=== PATIENT | female | born 1950 | race African-American/Black ===

== ENCOUNTER 2019-09-01 15:42 | Observation (INO) | payer MEDICARE ==
[2019-09-01 16:31] LABS: #Lymphocytes 0.6 thou/uL (1.20-3.40); #Monocytes 0.3 thou/uL (0.11-0.59); #Neutrophils 2.6 thou/uL (1.40-6.50); %Eosinophils 0.6 % (0.0-10.0); %Lymphocytes 16.7 % (21.0-51.0); %Monocytes 9.3 % (0.0-10.0); %Neutrophils 73.4 % (42.0-75.0); Hemoglobin 9.3 g/dL (12.0-16.0); Mean Corpuscular HGB CONC 31.8 g/dL (32.0-36.0); Mean Corpuscular Hemoglobin 27.6 pg (27.0-31.0); Mean Corpuscular Volume 86.6 fL (78.0-98.0); Mean Platelet Volume 8.1 fL (7.4-10.4); Platelet Count 167 thou/uL (130-400); RBC Distribution Width 14.5 % (11.5-14.5); Red Blood Cell (RBC) Count 3.36 mill/uL (4.20-5.40); White Blood Cell (WBC) Count 3.5 thou/uL (4.8-10.8)
--- NOTE | 2019-09-01 16:41 | RAD ---
Exam: Chest one view HISTORY:Chest pain. Shortness of breath. Comparison: 03/09/2007 FINDINGS: Cardiac silhouette: Cardiomegaly. Prosthetic aortic valve. Sternotomy wires. Aorta: Atherosclerosis of the aorta. Pulmonary vessels: Mildly prominent pulmonary vasculature. Costophrenic angles: Clear LUNGS: Patchy interstitial opacities which may represent edema or infiltrate. Pneumothorax: None Osseous abnormalities: None IMPRESSION: Congestive heart failure. Superimposed infiltrate cannot be excluded.
[2019-09-01 17:01] LABS: ALT (SGPT) 14 U/L (8-55); AST (SGOT) 27 U/L (5-34); Alkaline Phosphatase 121 U/L (40-110); Anion Gap 20 mmol/L (10-20); BUN (Urea Nitrogen) 44 mg/dL (9.8-20.1); Bilirubin, Total 0.4 mg/dL (0.2-1.2); Calc. Creatinine Clearance 0 mL/min (70-130); Calcium 6.6 mg/dL (7.8-10.44); Carbon Dioxide 21 mmol/L (23-31); Chloride 106 mmol/L (98-107); Estimated GFR-MDRD 20; Globulin 3.1 g/dL (2.4-3.5); Glucose 125 mg/dL (83-110); Potassium 4.5 mmol/L (3.5-5.1); Protein, Total 7.1 g/dL (6.0-8.3); Sodium 142 mmol/L (136-145)
--- NOTE | 2019-09-01 18:15 | PDOC.FPRHP ---
- History of Present Illness Chief Complaint: Chest Pain History of Present Illness: Patient is a 69 y/o female with a PMH significant for Aortic Valve Replacement, Mitral Regurgitation, HTN and bilateral Kidney Transplant who presents to the ED for evaluation of CP. The patient states that she has had left-sided CP for 4-5 days, and notes that the pain has been dull and constant, with occasional feelings of sharpness for 30-40S that resolve spontaneously. She pain does not radiate, and was initially an 8/10, although now it is a 3/10 without modifying position or medications. She notes that the pain is worse with exertion, and is associated with SOB. The pain was relieved temporarily when she took a Tylenol 4 at home, but she has not taken any additional medication today. She has never had this type of pain in the past. She also reports feelings of nausea x1 several days ago that resolved spontaneously, as well as subjective shakiness, SCHILLING, fatigue. She has LE edema at baseline, and does not feel that this has worsened over the past several days. She denies feeling cold/clammy, diaphoretic, pre-syncopal, noticeable palpitations, worsening PND, pain worse with inspiration, any recent illness, ANDERSEN , rhinorrhea, epistaxis, cough, congestion, ABD pain, episodes of repeat nausea , dysuria, bloody stools, myalgias, arthralgias, or recent trauma. Patient states that she gets fluid overloaded on occasional, but is unsure if this is similar to her previous episodes. She received her Flu Shot this year. ED Course: s/p ASA 325 Trops: Negative x1 EKG: NSR w/o ST Elevations - No Old EKGs for Comparison - Allergies/Adverse Reactions Allergies Allergy/AdvReac Type Severity Reaction Status Date / Time adhesive Allergy Verified 09/01/19 20:07 cephalexin Allergy Anaphylaxis Verified 09/01/19 20:07 shellfish derived Allergy Anaphylaxis Verified 09/01/19 20:07 - History PMHx: ELISABETH (Wears CPAP at Home), HTN, CHF, Mitral Regurgitation, Asthma PSHx: Aortic Valve Replacement (2016), Kidney Transplant x2 (2009), Wrist Surgery, Back Surgery FHx: HTN (Mother, Father), DM2 (Sister) Social: Denies x3. 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 Meds: ASA, Lasix, Metoprolol, Simvastatin, Prograft, Micophenolate, Allergies: Keflex (Angioedema), Tegederm (Rash) Code: Full - Review of Systems General: reports: fatigue. denies: fever/chills, weight/appetite/sleep changes Eyes: denies: vision changes ENT: denies: nasal congestion, rhinorrhea Respiratory: reports: shortness of breath, exercise intolerance. denies: cough , congestion Cardiovascular: reports: chest pain, edema. denies: palpitation, paroxysmal nocturnal dyspnea Gastrointestinal: reports: nausea. denies: vomiting, diarrhea, constipation, abdominal pain Genitourinary: denies: dysuria, discharge Musculoskeletal: reports: swelling. denies: arthritis/arthralgias Neurological: denies: syncope, weakness - Vital signs BP: [151/79] HR: [95] RR: [19] Tmax: [98.6] Pox: [100]% on [Room] Wt: [] - Physical Exam Constitutional: NAD, other (Mildly SOB with movement - O2Sats 100% on monitor) HEENT: normocephalic and atraumatic, PERRLA, conjunctiva clear, no scleral icterus, grossly normal vision, grossly normal hearing, normal nasal mucosa, MMM , oropharynx clear Neck: supple, FROM, trachea midline, no LAD, no JVD, no bruits Chest: no-tender to palpation, no lesions Heart: RRR, normal S1/S2, pulses present, no edema (No pitting edema, but ankles appear mildly swollen bilaterally) -Heart: 3/6 Systolic Murmur heard throughout the Precordium Lungs: CTAB, no respiratory distress, good air movement, no rales/rhonchi, no wheezing, no retractions Abdomen: soft, non-tender, bowel sounds present, no masses/distention, no hernias Musculoskeletal: normal structure, ROM grossly normal Neurological: no focal deficit Skin: no rash/lesions, no jaundice Heme/Lymphatic: no unusual bruising or bleeding, no purpura, no petechia, no LAD Psychiatric: normal mood and affect, intact recent and remote memory FMR H&P: Results - Labs Result Diagrams: 09/01/19 16:24 09/01/19 19:52 Lab results: WBC 3.5 thou/uL (4.8-10.8) L 09/01/19 16:24 Hgb 9.3 g/dL (12.0-16.0) L 09/01/19 16:24 Hct 29.1 % (36.0-47.0) L 09/01/19 16:24 MCV 86.6 fL (78.0-98.0) 09/01/19 16:24 Plt Count 167 thou/uL (130-400) 09/01/19 16:24 Neutrophils % 73.4 % (42.0-75.0) 09/01/19 16:24 Sodium 142 mmol/L (136-145) 09/01/19 16:24 Potassium 4.5 mmol/L (3.5-5.1) 09/01/19 16:24 Chloride 106 mmol/L (98-107) 09/01/19 16:24 Carbon Dioxide 21 mmol/L (23-31) L 09/01/19 16:24 BUN 44 mg/dL (9.8-20.1) H 09/01/19 16:24 Creatinine 2.87 mg/dL (0.6-1.1) H 09/01/19 16:24 Glucose 125 mg/dL (83-110) H 09/01/19 16:24 Calcium 6.6 mg/dL (7.8-10.44) L 09/01/19 16:24 Total Bilirubin 0.4 mg/dL (0.2-1.2) 09/01/19 16:24 AST 27 U/L (5-34) 09/01/19 16:24 ALT 14 U/L (8-55) 09/01/19 16:24 Alkaline Phosphatase 121 U/L (40-110) H 09/01/19 16:24 B-Natriuretic Peptide 487.1 pg/mL (0-100) H 09/01/19 16:24 Serum Total Protein 7.1 g/dL (6.0-8.3) 09/01/19 16:24 Albumin 4.0 g/dL (3.4-4.8) 09/01/19 16:24 - EKG Interpretation EKG: No ST Elevations - Radiology Interpretation Chest x-ray Status: report reviewed by me (Cardiomegaly w/ Mild Vascular Congestion) FMR H&P: A/P - Problem List (1) CHF exacerbation Current Visit: Yes Status: Acute Code(s): I50.9 - HEART FAILURE, UNSPECIFIED (2) Kidney transplant recipient Current Visit: Yes Status: Acute Code(s): Z94.0 - KIDNEY TRANSPLANT STATUS (3) Asthma Current Visit: Yes Status: Acute Code(s): J45.909 - UNSPECIFIED ASTHMA, UNCOMPLICATED (4) HTN (hypertension) Current Visit: Yes Status: Acute Code(s): I10 - ESSENTIAL (PRIMARY) HYPERTENSION (5) Aortic valve replaced Current Visit: Yes Status: Acute Code(s): Z95.2 - PRESENCE OF PROSTHETIC HEART VALVE (6) Hypocalcemia Current Visit: Yes Status: Acute Code(s): E83.51 - HYPOCALCEMIA (7) Atypical chest pain Current Visit: Yes Status: Acute Code(s): R07.89 - OTHER CHEST PAIN - Plan Patient is a 69 y/o female who presents to the ED for evaluation of Chest Pain. 1. Atypical Chest Pain -Left-sided, worse with exertion - not relieved with rest -Possibly MSK or related to #2 -EKG: No evidence of ST Elevation - no previous EKG for comparison -Trops: Negative x1 - will continue to trend -s/p ASA 325 in the ED -NM Stress Test: Pending 2. CHF Exacerbation -Patient has extensive Hx of renal dysfunction and has had episodes of fluid overload in the past -Patient thinks she has gained ~2 LBS recently - daily weigh-ins at home -BNP: 487 -Will administer additional Furosemide 20 mg IV at this time - continue home dose in AM -TTE: Pending -Strict I&Os, Daily Weights -Will add Fluid Restriction to Diet -Will repeat 2-View CXR in AM 3. Hx of Kidney Transplant, Bilateral -Nephrology consulted - recs appreciated 4. Hypocalcemia -Ca: 6.6 -M.0 -Phos: Pending -Will administer Ca 4.6 mEq IV at this time -Trend w/ AM Labs 5. HTN -Will restart home medication regimen 6. Asthma -DuoNebs Q6H PRN PCP: Lilli ([facility]) Code: Full Diet: Heart Healthy w/ Low Sodium (Fluid Restriction < 1800 ml) - NPO After 2358 Activity: Ad sheila VTE PPx: Heparin 5000U TID w/ SCDs Dispo: Patient is currently stable and admitted to the Telemetry Floor for evaluation of suspected CHF Exacerbation. Trend Troponin levels and await AM Labs and imaging results as per above - consider Cardiology consult if TTE or NM Stress Test is non-reassuring. Nephrology consulted, recs appreciated. Expected LOS < 48H. FMR H&P: Upper Level - Plan Date/Time: 09/01/19 2034 PCP: [facility] HPI: This is a 69 yo F with PMH including CHF, bilateral renal transplant, Aortic Valve Replacement, Asthma, and HTN who comes in with 5 days of chest pain. Described as sharp left sided pain which comes and goes and radiates to the center. Yesterday the pain radiated to the arm but it has not done this today. She states she has been getting short of breath with exertion and this is bothering her more than the chest pain. She denies cough, orthopnea, wt change ( weights herself every day, is within 2lbs of normal everyday), or leg swelling. She states she has not been on dialysis since 2009. Dr. Ayala is her Staff Development Coordinator Rn and Dr. Johnson is her Licensed Acupuncturist. She does not remember the last time she had a stress test or a cath. REVIEW OF SYSTEMS: Gen: no fever, chills, or sweats Neuro: denies headache Eyes: no visual changes ENT: no hearing changes, no sore throat, no congestion Resp: see hpi Card: see hpi GI: no N/V/D, no abdominal pain Skin: no rash, no erythema PHYSICAL EXAMINATION: General: NAD, alert and oriented x3 HEENT: normal sclera, oropharynx without erythema or exudate Neck: Supple. Full ROM. Heart/Cardiovascular System: RRR, Cap refill < 3 seconds, no rub, 2/6 systolic murmur Lungs/Respiratory System: mild decreased sounds at bases, no rales/wheezes, no resp distress Abdomen/Gastro-Intestinal System: no abdominal tenderness, normal bowel sounds Extremities: Warm extremities. Trace edema at the ankles Neuro: No gross deficits appreciated. CN 2-12 grossly intact Psychiatry: Awake, Alert and cooperative with exam Skin: No lesions, rashes, or ulcers Musculoskeletal: Full ROM A/P: # Atypical Chest pain, r/o ACS vs costochondritis - Trop 0.016, trend - EKG with prolonged qTC 484 - HEART: 6, unknown last cath vs stress - Plan for stress test in AM # Probable Mild CHF Exacerbation, Hx Aortic Valve Replacment - BNP 487, Likely mild pulm edema on CXR, possible infiltrate - 20mg Lasix IV, re-check CXR 2V in AM - Ordered echocardiogram - Strict I/O, fluid restriction # RENAN on CKD - Cr 2.87, unsure of baseline - Aysha diuresis - Consulted Dr. Ayala, appreciate recs # Hypocalcemia - 6.6, alb 4.0, mag 2.0 - 1g IV calcium gluconate, PO replacement - QTc mildly elevated at 484 - Phos level pending - Dr. Ayala aware, will see patient tonight, appreciate recs # HTN, Asthma Fluids: TKO Code status: full PPx: heparin Dispo: OBS pending stress test
[2019-09-01] MEDS ORDERED: Aspirin Chewable 81 MG TAB ONE (18:28)
[2019-09-01] MEDS ORDERED: Albuterol Sulfate 2.5 mg/3 ml Neb NEB PRN (19:14)
[2019-09-01] MEDS ORDERED: Ondansetron PF 4 MG/2 ML Vial IVP PRN (19:37)
[2019-09-01] MEDS ORDERED: Ondansetron ODT 4 MG TAB SL PRN (19:37)
[2019-09-01] MEDS ORDERED: Acetaminophen 325 MG TAB PO PRN ×2 (19:37→19:46)
[2019-09-01] MEDS ORDERED: Nitroglycerin 0.4 MG TAB (25 Tab Bottle) PO PRN (19:46)
[2019-09-01 20:14] LABS: ALT (SGPT) 14 U/L (8-55); AST (SGOT) 21 U/L (5-34); Albumin 4.2 g/dL (3.4-4.8); Alkaline Phosphatase 127 U/L (40-110); Anion Gap 18 mmol/L (10-20); BUN (Urea Nitrogen) 44 mg/dL (9.8-20.1); Bilirubin, Total 0.5 mg/dL (0.2-1.2); Calc. Creatinine Clearance 0 mL/min (70-130); Calcium 6.8 mg/dL (7.8-10.44); Carbon Dioxide 22 mmol/L (23-31); Chloride 107 mmol/L (98-107); Estimated GFR-MDRD 20; Glucose 93 mg/dL (83-110); Phosphorus 4.4 mg/dL (2.3-4.7); Potassium 4.2 mmol/L (3.5-5.1); Protein, Total 7.2 g/dL (6.0-8.3); Sodium 143 mmol/L (136-145)
[2019-09-01] MEDS ORDERED: Calcium Gluconate 4.6 MEQ in Sodium Chloride 0.9% 100 ML IVPB SCH (20:15)
[2019-09-01] MEDS ORDERED: Furosemide 20 MG/2 ML VIAL SLOW IVP SCH (20:15)
[2019-09-01 20:18] LABS: Troponin I 0.036 ng/mL (< 0.028)
[2019-09-01] MEDS ORDERED: Famotidine 20 MG TAB PO SCH (21:00)
[2019-09-01] MEDS: Calcium Carbonate 500 MG ChewTAB PO SCH (21:40)
[2019-09-01] MEDS: Nitroglycerin 2% Ointment 1 INCH/1 GM Packet TOP SCH (21:41)
[2019-09-01] MEDS: Heparin 5,000 UNITS/ML VIAL SC SCH (21:41)
[2019-09-01 23:06] LABS: Troponin I 0.028 ng/mL (< 0.028)
[2019-09-02 01:58] VITALS: BMI 30.3
[2019-09-02 04:56] LABS: ALT (SGPT) 11 U/L (8-55); AST (SGOT) 18 U/L (5-34); Albumin 3.7 g/dL (3.4-4.8); Alkaline Phosphatase 110 U/L (40-110); Anion Gap 16 mmol/L (10-20); BUN (Urea Nitrogen) 44 mg/dL (9.8-20.1); Bilirubin, Total 0.4 mg/dL (0.2-1.2); Calc. Creatinine Clearance 25 mL/min (70-130); Calcium 6.7 mg/dL (7.8-10.44); Carbon Dioxide 23 mmol/L (23-31); Cardiac Risk 2.4 (Less than 4.5); Chloride 109 mmol/L (98-107); Cholesterol 156 mg/dl (< 200 Desired); Estimated GFR-MDRD 22; Globulin 2.5 g/dL (2.4-3.5); Glucose 92 mg/dL (83-110); HDL Cholesterol 65 mg/dL (>60 Neg Risk); LDL Cholesterol, Calculated 78 mg/dL; Protein, Total 6.2 g/dL (6.0-8.3); Sodium 144 mmol/L (136-145); Triglycerides 67 mg/dL (Less than 150)
--- NOTE | 2019-09-02 05:11 | PDOC.BPN ---
- Brief Progress Note Paged to bedside for recurrence of chest pain Started at 8, improved to "2or 3" after nitro Pain is between the shoulder blades and radiating to substernal chest Pain comes and goes lasting at max 5 seconds at a time Aortic dissection is considered with patient's history of AVR Pulses intact and equal bilaterally, Vital signs stable Patient talking in complete sentences without difficulty OH also considered Repeat EKG shows no ST changes, no t inv, no q waves Will check dimer and trop stat Will patient's CKD dye will be an issue, will plan to discuss case with Cardiology after labs result
[2019-09-02] MEDS: Nitroglycerin 2% Ointment 1 INCH/1 GM Packet TOP SCH (05:47)
--- NOTE | 2019-09-02 06:11 | PDOC.FM ---
- Subjective Subjective: She is having 5/10 chest pain currently. She was having 8/10 chest pain this morning that last for 12 seconds. She says the pain was relieved by the nitro. She says the pain is sharp and on the left side of her chest. - Objective MAR Reviewed: Yes Vital Signs & Weight: Vital Signs (12 hours) Temp Pulse Resp BP BP BP Pulse Ox 09/02/19 05:51 160/82 H 09/02/19 05:48 141/80 H 09/02/19 04:17 74 125/64 09/02/19 04:12 77 129/64 09/02/19 03:48 98 F 73 18 125/63 96 09/02/19 00:22 97.9 F 72 20 130/62 98 09/01/19 20:00 98.2 F 79 20 119/69 96 Weight Weight 80.014 kg Result Diagrams: 09/01/19 16:24 09/02/19 04:23 EKG Reviewed by me: Yes (Sinus Rhythm 70s) Phys Exam - Physical Examination Constitutional: NAD HEENT: moist MMs, oral pharynx no lesions Neck: supple, full ROM Respiratory: no wheezing, no rales, no rhonchi, clear to auscultation bilateral Cardiovascular: RRR Gastrointestinal: soft, non-tender, positive bowel sounds Musculoskeletal: pulses present trace edema Neurological: moves all 4 limbs Psychiatric: normal affect Skin: no rash, normal turgor Dx/Plan (1) Aortic valve replaced Code(s): Z95.2 - PRESENCE OF PROSTHETIC HEART VALVE Status: Acute (2) Asthma Code(s): J45.909 - UNSPECIFIED ASTHMA, UNCOMPLICATED Status: Acute (3) Atypical chest pain Code(s): R07.89 - OTHER CHEST PAIN Status: Acute (4) CHF exacerbation Code(s): I50.9 - HEART FAILURE, UNSPECIFIED Status: Acute (5) HTN (hypertension) Code(s): I10 - ESSENTIAL (PRIMARY) HYPERTENSION Status: Acute (6) Hypocalcemia Code(s): E83.51 - HYPOCALCEMIA Status: Acute (7) Kidney transplant recipient Code(s): Z94.0 - KIDNEY TRANSPLANT STATUS Status: Acute - Plan Plan: Patient is a 69 y/o female who presents to the ED for evaluation of Chest Pain. 1. Atypical Chest Pain Left-sided, worse with exertion - not relieved with rest * EKG: No evidence of ST Elevation - no previous EKG for comparison, qtc prolongation- 484 * Trops: 0.016 > 0.036 > 0.028 > 0.020 * HEART Score: 6, unknown last cath vs stress * s/p ASA 325 in the ED * NM Stress Test: Today * ASCVD: 10.6% * Change to high intensity statin * CT today 2. CHF Exacerbation Patient has extensive Hx of renal dysfunction and has had episodes of fluid overload in the past and thinks she has gained ~2 LBS recently - daily weigh- ins at home * CXR: Congestive heart failure, cannot rule out superimposed infiltrate * BNP: 487 * s/p Furosemide 20 mg IV at this time - continue home dose in AM * ECHO: Pending * Strict I&Os, Daily Weights, Fluid Restriciton * Repeat 2-View CXR today 3. RENAN on CKD with Hx of Kidney Transplant, Bilateral Cre: 2.87 > 2.61 * Nephrology, Dr. Ayala, consulted - recs appreciated 4. Hypocalcemia Ca: 6.6, M.0, Phos: 4.0, Alb: 4.0 * s/p Ca 4.6 mEq IV at this time and1g IV calcium gluconate * Will trend and monitor * QTc mildly elevated at 484 5. HTN * Continue home meds 6. Asthma * DuoNebs Q6H PRN Code Status: Full Diet: Heart Healthy w/ Low Sodium (Fluid Restriction < 1800 ml) - NPO After 2358 Activity: Ad sheila Lines: SL DVT PPx: Heparin 5000U TID w/ SCDs PCP: Lilli ([facility]) Dispo: Tele obs for evaluation of suspected CHF Exacerbation. CT, ECHO, and NM Stress Test today. Nephrology recs. Expected LOS < 48H.
--- NOTE | 2019-09-02 06:13 | PDOC.BPN ---
- Brief Progress Note Spoke to manager of employee relations Eyeglass Cutter, being that patient had Aortic valve replacement in 2016 with no stents per patient the coronaries were likely normal Aortic dissection or PE with the elevated dimer are a concern Spoke to Dr. Ayala, he states she has a anaphylactic allergy to iodine and her kidneys absolutely cannot tolerate a dye load of CTA He states cath could be ok if deemed necessary by cardiology Patient feeling somewhat better, but about the same, no pulse deficit, VSS Will proceed with stress test Will give morphine PRN for pain
[2019-09-02] MEDS ORDERED: Morphine 2 MG/ML SYRINGE SLOW IVP PRN (06:58)
[2019-09-02] MEDS ORDERED: predniSONE 5 MG TAB PO SCH (08:00)
[2019-09-02] MEDS: Calcium Carbonate 500 MG ChewTAB PO SCH (09:00)
[2019-09-02] MEDS ORDERED: Prevnar 13-Val Conj/PF 0.5 ML SYRINGE IM ONE (09:00)
[2019-09-02] MEDS ORDERED: Mycophenolate ER 180 MG TAB PO SCH (09:00)
[2019-09-02] MEDS ORDERED: Furosemide 40 MG TAB PO SCH (09:00)
[2019-09-02] MEDS ORDERED: Amlodipine 10 MG TAB PO SCH (09:00)
[2019-09-02] MEDS ORDERED: Gabapentin 300 MG CAP PO SCH (09:00)
[2019-09-02] MEDS ORDERED: Tacrolimus 0.5 MG CAP PO SCH (09:00)
[2019-09-02] MEDS: Heparin 5,000 UNITS/ML VIAL SC SCH ×2 (09:01→16:14)
--- NOTE | 2019-09-02 09:23 | RAD ---
EXAM: Chest 2 views: HISTORY: Volume overload COMPARISON: 09/01/2019 FINDINGS: There is an enlarged cardiomediastinal silhouette. The patient is status post aortic valve repair. I ncreased interstitial markings are present. There is no evidence of consolidation, mass, or pleural effusion. The bones are unremarkable. IMPRESSION: Stable exam
[2019-09-02] MEDS ORDERED: Regadenoson 0.4 MG/5 ML SYRINGE ONE (12:19)
--- NOTE | 2019-09-02 14:25 | NM ---
Nuclear medicine myocardial perfusion scan: 09/02/2019 COMPARISON: None HISTORY: Chest pain TECHNIQUE: SPECT imaging of the left ventricular myocardium obtained during stress and rest following the intravenous administration of 30.0 and 9.8mCi technetium 99 M labeled sestamibi respectively. FINDINGS: No discrete fixed or reversible defect. TID is 0.97. Left ventricular wall motion appears within normal limits. End-diastolic volume is 113 mL and end systolic volume is 41 mL. Left ventricular ejection fraction is estimated at 64%. IMPRESSION: No discrete reversible defect. Normal left ventricular wall motion. Estimated LVEF of 64%.
[2019-09-02 15:34] VITALS: BP 139/72; TEMP 98.6
[2019-09-02] MEDS ORDERED: Mometasone Furoate 120 PUFF 220 MCG INH SCH (18:30)
[2019-09-02] MEDS ORDERED: Atorvastatin Calcium 40 MG TAB PO SCH (21:00)
[2019-09-02] MEDS ORDERED: Atorvastatin Calcium 20 MG TAB PO SCH (21:00)
--- NOTE | 2019-09-03 06:06 | HP ---
Please see the full history and physical done by Dr. Foy, for which I agree and also the progress note done by Dr. Eliud Harp, for which I agree. The patient is seen, evaluated, discussed, and examined with the residents. HISTORY OF PRESENT ILLNESS: This is a 69-year-old Afro-[place]ub[place] female with history of 2 separate renal transplants, although her creatinine is elevated again and is being followed by Nephrology, who comes in with left-sided chest pain, a little bit atypical. This seems to radiate around the left lower abdominal wall and then somewhat to her back. Not associated with major shortness of breath, nausea, vomiting, or diaphoresis. She has been eating okay, not particularly short of breath, maybe a little bit of nausea at one time. Known heart failure and I am not sure if that is systolic or diastolic. She states sometimes she will get a little bit overloaded, but does not really feel like she is currently. PAST MEDICAL HISTORY: All per the resident's history and physical, for which I agree. PAST SURGICAL HISTORY: All per the resident's history and physical, for which I agree. MEDICATIONS: All per the resident's history and physical, for which I agree. FAMILY HISTORY: All per the resident's history and physical, for which I agree. SOCIAL HISTORY: All per the resident's history and physical, for which I agree. REVIEW OF SYSTEMS: All per the resident's history and physical, for which I agree. PHYSICAL EXAMINATION: VITAL SIGNS: Blood pressure was a little bit elevated. GENERAL: No apparent distress. Pleasant affect. Alert and oriented x3. EENT: Within normal limits. Specifically, conjunctivae not pale. Sclerae anicteric. Moist mucosa. NECK: No JVD or bruits. CHEST: Clear. HEART: Regular rate and rhythm. Cannot reproduce chest pain on palpation. ABDOMEN: Benign. EXTREMITIES: Showed no edema. LABORATORY DATA: The lab is significant for a slightly low hemoglobin at 9, white count a little bit low at 3.5. Creatinine is 2.7, it sounds like that may be baseline. BNP was a little bit high at 47, but I am not sure if we really know what her baseline is. ASSESSMENT: 1. Chest pain, somewhat atypical. 2. Congestive heart failure exacerbation, unclear if this is systolic heart failure or diastolic or both. 3. History of renal transplant, now with a chronically elevated creatinine. 4. Hypocalcemia. PLAN: We are getting a stress test today and we will see what that shows. If it is normal, going to assume this is chest wall pain or reflux because otherwise she is doing fairly fine from a lab standpoint, etc. Probably could go home on a proton pump inhibitor if the stress test is normal, but we will wait and see what it shows. There is some question if we need to be worried about something like a pulmonary embolism, but pulse rate has been okay, nonpleuritic pain, not really high risk factors for this being embolic disease, and Nephrology told us that we cannot do contrast because they are worried about her current kidney function and so it is not worth the risk, not sure V/Q scan is warranted. The other question is could this potentially be an aortic dissection with pain somewhat going to her back, but she is not horribly symptomatic; however, it seems she would be in a lot more pain and distress than she is. We will get an echocardiogram and that will at least show us the aortic root. Job ID: [id number]
--- NOTE | 2019-09-03 14:18 | DIS ---
DATE OF ADMISSION: 09/01/2019 DATE OF DISCHARGE: 09/02/2019 RESIDENT: Eliud Harp MD ADMITTING ATTENDING: Doc Schultz MD DISCHARGE ATTENDING: Doc Schultz MD CONSULTS: None. PROCEDURES: * Chest x-ray on 09/01/2019, shows congestive heart failure, superimposed, infiltrate cannot be excluded. * Chest x-ray on 09/02/2019, shows stable exam. * Stress test 09/02/2019, shows EF of 64%. No discrete fixed or reversible defects. Left ventricular wall motion appears within normal limits. * Echo 09/02/2019 shows EF of 55% to 60%. Grade 2/3 diastolic dysfunction. Moderately dilated left atrium, moderately enlarged right atrium. Mitral annular calcification. Mild to moderate mitral regurg. Bioprosthetic aortic valve in place, well-seated. Normal flow velocities. Moderate tricuspid regurg. Elevated right ventricular systolic pressure estimated at 65 mg Hg. PRIMARY DIAGNOSES: 1. Atypical chest pain. 2. Congestive heart failure exacerbation. 3. Acute kidney injury on chronic kidney disease with history of bilateral kidney transplants. 4. Hypocalcemia. SECONDARY DIAGNOSES: 1. Hypertension. 2. Asthma. DISCHARGE MEDICATIONS: Atorvastatin 40 mg at bedtime started. Continue home medication. DISCONTINUED MEDICATIONS: 1. Heparin. 2. DuoNebs. HISTORY OF PRESENT ILLNESS: The patient is a 69-year-old female with past medical history significant for aortic valve replacement, mitral regurg, hypertension, and bilateral kidney transplants, who presented to the ED for evaluation of chest pain. The patient states that she had left-sided chest pain for 4 to 5 days and notes that the pain has been dull and constant with occasional feelings of shortness for breath 30 to 40 seconds and resolved spontaneously. She says the pain does not radiate and was initially 8/10, although now it is 3/10 without modifying position or medications. She notes that the pain is worse with exertion and is associated with shortness of breath. The pain was relieved temporarily when she took a Tylenol 4 at home, but she has not taken any additional medication today. She has never had this type of pain in the past. She also reports feeling of nausea for 1 day that resolved spontaneously as well as subjective shakiness, dyspnea on exertion, fatigue. She has lower extremity edema at baseline and does not feel that this has worsened over the past several days. She denies feeling cold, clammy, diaphoretic, presyncope or noticeable palpitations, worsening paroxysmal nocturnal dyspnea. Pain worse with inspiration, any recent illness, headache, rhinorrhea, epistaxis, cough, congestion, abdominal pain, episodes of repeat nausea, dysuria, bloody stools, myalgias, arthralgias, or recent trauma. The patient states she gets fluid overloaded on occasion, but is unsure if this is similar to previous episodes. She received her flu shot this year. In the ED, she was given aspirin 325, troponin was negative and EKG showed normal sinus rhythm without ST elevations. No old EKGs for comparison. 1. Atypical chest pain, left-sided, worse with exertion, not relieved with rest. EKG as noted above. * Troponins were 0.016 up to 0.036, but trended down to 0.020. * Heart score 6. * Status post aspirin 325 in the ED. * Stress test was negative as noted above. * ASCVD is 10.6%. * Statin was changed from moderate to high intensity. 2. CHF exacerbation. The patient has extensive history of renal dysfunction and had an episode of fluid overload in the past and thinks she has gained 2 pounds recently. * Chest x-ray as noted above. * BNP was 487. * She received 20 mg IV of Lasix. * Echo as noted above. 3. RENAN on CKD. Creatinine was 2.87, trended down to 2.61. * Talked with Dr. Ayala, the oil mixer and consulted. 4. Hypocalcemia. * Calcium 6.6, magnesium 2, phosphorus 4, albumin 4. * Status post oral and IV calcium. * Mail Clerks Supervisor is aware. 5. Hypertension. * Continue home medications. 6. Asthma. * DuoNebs q.6h p.r.n. DISPOSITION: Stable. DISCHARGE INSTRUCTIONS: 1. Location: Home. 2. Diet: Heart healthy, low-sodium. 3. Activity: As tolerated. 4. Followup: With PCP in 7 days. Job ID: [id number] [facility] FACILITYBaldomero
== END 2019-09-02 18:32 | disposition home or self-care (01) ==
LOC: ERS 15:42 → 2SW 19:43
PROVIDERS: ADMIT Family Medicine; ATTEND Family Medicine
DX: R07.89 Other chest pain (principal); I13.0 Hypertensive heart and chronic kidney disease with heart failure and stage 1 through stage 4 chronic kidney disease, or unspecified chronic kidney disease; I50.9 Heart failure, unspecified; N17.9 Acute kidney failure, unspecified; E83.51 Hypocalcemia; N18.9 Chronic kidney disease, unspecified; J45.909 Unspecified asthma, uncomplicated; G47.33 Obstructive sleep apnea (adult) (pediatric); Z79.51 Long term (current) use of inhaled steroids; Z79.899 Other long term (current) drug therapy; Z88.1 Allergy status to other antibiotic agents; Z91.013 Allergy to seafood; Z91.041 Radiographic dye allergy status; Z91.048 Other nonmedicinal substance allergy status; Z94.0 Kidney transplant status; Z95.2 Presence of prosthetic heart valve; Z99.89 Dependence on other enabling machines and devices
CPT/HCPCS: 71045; 71046; 78452; 80053; 80061; 83690; 83735; 83880; 84100; 84484 ×3; 85379; 93005 ×2; 93017; 93306; 94760 ×2; 99285; A9500; 36415; 84443; 85025; 93010; 96374; G0378; J1940; J2785; J3490; J7507; J7512

== ENCOUNTER 2021-11-17 12:03 | Observation (INO) | payer MEDICARE ==
[~2021-11-17 12:03] MED LIST: Iopamidol 370 76% 100 ML VIAL ONE
[2021-11-17] MEDS ORDERED: methylPREDNISolone Sod Succ 40 MG VIAL ONE (12:37)
[2021-11-17] MEDS ORDERED: diphenhydrAMINE 50 MG/ML VIAL ONE (12:37)
[2021-11-17] MEDS ORDERED: Famotidine/PF 20 mg/2ml Vial ONE (12:37)
[2021-11-17 12:38] LABS: Hemoglobin 8.8 g/dL (12.0-16.0); Mean Corpuscular HGB CONC 30.1 g/dL (32.0-36.0); Mean Corpuscular Hemoglobin 27.5 pg (27.0-31.0); Mean Corpuscular Volume 91.5 fL (78.0-98.0); Mean Platelet Volume 9.3 fL (7.4-10.4); Platelet Count 191 thou/uL (130-400); RBC Distribution Width 24.8 % (11.5-14.5)
[2021-11-17 12:44] LABS: INR-International Normal Ratio 1.2; Prothrombin Time 15.1 sec (12.0-14.7)
[2021-11-17 12:45] LABS: PTT 52.4 sec (22.9-36.1)
[2021-11-17 12:47] LABS: ALT (SGPT) 12 U/L (8-55); AST (SGOT) 17 U/L (5-34); Albumin 3.3 g/dL (3.4-4.8); Alkaline Phosphatase 270 U/L (40-110); Anion Gap 14 mmol/L (10-20); BUN (Urea Nitrogen) 31 mg/dL (9.8-20.1); Bilirubin, Total 0.8 mg/dL (0.2-1.2); Calc. Creatinine Clearance 0 mL/min (70-130); Calcium 8.5 mg/dL (7.8-10.44); Carbon Dioxide 23 mmol/L (23-31); Chloride 104 mmol/L (98-107); Glucose 77 mg/dL (83-110); Potassium 4.3 mmol/L (3.5-5.1); Protein, Total 7.3 g/dL (5.8-8.1); Sodium 137 mmol/L (136-145)
[2021-11-17 13:03] LABS: Anisocytosis MODERATE=16-30 cells (100X) (0-5/hpf); Eosinophils 3 % (0-10); Lymphocytes 29 % (21-51); MDiff Complete? YES; Monocytes 14 % (0-10); Neutrophil 53 % (42-75); Platelet Morphology Comment Appears Adequate; Polychromasia SLIGHT = 2-3 cells (100X) (0-2/hpf); Reactive Lymphocytes 1 % (0-10)
[2021-11-17] MEDS ORDERED: Aspirin Chewable 81 MG TAB ONE (15:23)
[2021-11-17] MEDS ORDERED: hydrALAZINE 20 MG/ML VIAL SLOW IVP PRN (16:03)
[2021-11-17] MEDS ORDERED: Aspirin Chewable 81 MG TAB PO SCH (16:46)
[2021-11-17] MEDS: Metoprolol Tartrate 25 MG TAB PO SCH (22:08)
[2021-11-17 23:11] LABS: SARS-CoV-2 PCR by NAA Not Detected (NotDetected)
[2021-11-18] MEDS: Heparin 5,000 UNITS/ML VIAL SC SCH ×2 (07:46→20:41)
[2021-11-18 08:12] VITALS: BMI 24.3
[2021-11-18] MEDS ORDERED: Heparin 10,000 UNITS/ 10 ML VIAL ONE (08:41)
[2021-11-18] MEDS ORDERED: Amiodarone 200 MG TAB PO SCH (09:00)
[2021-11-18] MEDS: Metoprolol Tartrate 25 MG TAB PO SCH ×2 (09:00→20:41)
[2021-11-18] MEDS ORDERED: Aspirin 81 mg Enteric Coated Tablet PO SCH (09:00)
[2021-11-18 11:53] LABS: Hemoglobin A1c 4.5 % (4.0-6.0)
[2021-11-18 12:07] LABS: Cardiac Risk 2.5 (Less than 4.5); Cholesterol 140 mg/dl (< 200 Desired); HDL Cholesterol 55 mg/dL (>60 Neg Risk); LDL Cholesterol, Calculated 72 mg/dL; Triglycerides 64 mg/dL (Less than 150)
[2021-11-18 12:35] LABS: HBSAg Index 0.18 S/CO (0-0.99); Hep B Surf Ag Non-Reactive S/CO (NonReactive)
[2021-11-18 20:26] VITALS: BP 126/61; TEMP 97.8
[2021-11-18] MEDS ORDERED: Atorvastatin Calcium 40 MG TAB PO SCH (21:00)
== END 2021-11-18 21:40 | disposition home or self-care (01) ==
LOC: ERS 12:03 → NEURO 15:26
PROVIDERS: ADMIT Internal Medicine; ATTEND Internal Medicine
DX: R53.1 Weakness (principal); R47.1 Dysarthria and anarthria; I25.10 Atherosclerotic heart disease of native coronary artery without angina pectoris; I13.2 Hypertensive heart and chronic kidney disease with heart failure and with stage 5 chronic kidney disease, or end stage renal disease; N18.6 End stage renal disease; I50.32 Chronic diastolic (congestive) heart failure; D63.1 Anemia in chronic kidney disease; J45.909 Unspecified asthma, uncomplicated; G47.30 Sleep apnea, unspecified; M50.31 Other cervical disc degeneration, high cervical region; M50.21 Other cervical disc displacement, high cervical region; M48.02 Spinal stenosis, cervical region; M48.03 Spinal stenosis, cervicothoracic region; I08.8 Other rheumatic multiple valve diseases; Z86.73 Personal history of transient ischemic attack (TIA), and cerebral infarction without residual deficits; Z79.899 Other long term (current) drug therapy; Z88.1 Allergy status to other antibiotic agents; Z91.013 Allergy to seafood; Z91.041 Radiographic dye allergy status; Z94.0 Kidney transplant status; Z95.2 Presence of prosthetic heart valve; Z99.2 Dependence on renal dialysis
CPT/HCPCS: 70450; 70496; 70498; 70551; 71045; 72141; 80053; 80061; 82962 ×2; 83036; 83735; 84484; 85025; 85610; 85730; 87340; 93005; 93306; 94760; 96374; 96375; 97139 ×4; 97530; 99285; U0003; U0005; 36416; G0378; J1200; J1644; J2920; Q9967; S0028

== ENCOUNTER 2023-03-05 13:48 | Emergency (ER) | payer MEDICARE ==
[2023-03-05] MEDS ORDERED: Aspirin Chewable 81 MG TAB ONE (15:28)
[2023-03-05 16:18] LABS: #Eosinphils 0.1 thou/uL (0.0-0.7); #Monocytes 0.6 thou/uL (0.11-0.59); #Neutrophils 1.9 thou/uL (1.40-6.50); %Basophils 0.6 % (0.0-1.0); %Eosinophils 1.4 % (0.0-10.0); %Lymphocytes 26.1 % (21.0-51.0); %Monocytes 17.4 % (0.0-10.0); %Neutrophils 54.2 % (42.0-75.0); Hematocrit 34.3 % (36.0-47.0); Hemoglobin 9.9 g/dL (12.0-16.0); Mean Corpuscular HGB CONC 28.9 g/dL (32.0-36.0); Mean Corpuscular Hemoglobin 30.5 pg (27.0-31.0); Mean Corpuscular Volume 105.5 fl (78.0-98.0); Mean Platelet Volume 10.4 fL (7.4-10.4); RBC Distribution Width 17.8 % (11.5-14.5); Red Blood Cell (RBC) Count 3.25 mill/uL (4.20-5.40); White Blood Cell (WBC) Count 3.5 10x3/uL (4.8-10.8)
[2023-03-05 16:20] LABS: Platelet Count 104 10x3/uL (130-400)
[2023-03-05 16:47] LABS: Troponin I 0.024 ng/mL (< 0.028)
[2023-03-05 17:00] LABS: ALT (SGPT) 10 U/L (8-55); AST (SGOT) 25 U/L (5-34); Albumin 3.8 g/dL (3.4-4.8); Alkaline Phosphatase 184 U/L (40-110); Anion Gap 18 mmol/L (10-20); BUN (Urea Nitrogen) 37 mg/dL (9.8-20.1); Bilirubin, Total 0.8 mg/dL (0.2-1.2); Calc. Creatinine Clearance 0 mL/min (70-130); Calcium 8.4 mg/dL (7.8-10.44); Carbon Dioxide 26 mmol/L (23-31); Chloride 104 mmol/L (98-107); Estimated GFR 7; Globulin 4.2 g/dL (2.4-3.5); Glucose 72 mg/dL (83-110); Potassium 4.5 mmol/L (3.5-5.1); Sodium 143 mmol/L (136-145)
== END 2023-03-05 18:02 | disposition home or self-care (01) ==
LOC: ERS 13:48
DX: I82.622 Acute embolism and thrombosis of deep veins of left upper extremity (principal); I13.2 Hypertensive heart and chronic kidney disease with heart failure and with stage 5 chronic kidney disease, or end stage renal disease; N18.6 End stage renal disease; I50.9 Heart failure, unspecified; Z79.899 Other long term (current) drug therapy; Z79.01 Long term (current) use of anticoagulants
CPT/HCPCS: 71045; 80053; 83605; 83880; 84484; 85025; 93005

== ENCOUNTER 2023-03-09 17:35 | Inpatient (IN) | payer MEDICARE ==
[2023-03-09 18:16] LABS: Hematocrit 31.2 % (36.0-47.0); Hemoglobin 9.2 g/dL (12.0-16.0); Mean Corpuscular HGB CONC 29.5 g/dL (32.0-36.0); Mean Corpuscular Hemoglobin 31.3 pg (27.0-31.0); Mean Corpuscular Volume 106.1 fl (78.0-98.0); Mean Platelet Volume 10.7 fL (7.4-10.4); Platelet Count 104 10x3/uL (130-400); RBC Distribution Width 18.5 % (11.5-14.5); Red Blood Cell (RBC) Count 2.94 mill/uL (4.20-5.40); White Blood Cell (WBC) Count 4.5 10x3/uL (4.8-10.8)
[2023-03-09] MEDS ORDERED: Pantoprazole 40 MG VIAL ONE (18:21)
[2023-03-09 18:23] LABS: Delete Auto Diff?? YES; Manual Diff?? YES
[2023-03-09 18:28] LABS: INR-International Normal Ratio 1.4; PTT 34.3 sec (22.9-36.1); Prothrombin Time 18.1 sec (12.0-14.7)
[2023-03-09 18:37] LABS: ALT (SGPT) 15 U/L (8-55); AST (SGOT) 29 U/L (5-34); Albumin 3.7 g/dL (3.4-4.8); Alkaline Phosphatase 168 U/L (40-110); Anion Gap 17 mmol/L (10-20); BUN (Urea Nitrogen) 37 mg/dL (9.8-20.1); Bilirubin, Total 0.9 mg/dL (0.2-1.2); Calc. Creatinine Clearance 0 mL/min (70-130); Calcium 8.5 mg/dL (7.8-10.44); Carbon Dioxide 24 mmol/L (23-31); Chloride 104 mmol/L (98-107); Estimated GFR 10; Globulin 3.7 g/dL (2.4-3.5); Glucose 68 mg/dL (83-110); Potassium 4.7 mmol/L (3.5-5.1); Protein, Total 7.4 g/dL (5.8-8.1); Sodium 140 mmol/L (136-145)
[2023-03-09 19:10] LABS: Anisocytosis SLIGHT = 6-15 cells HPF (0-5); Band 1 % (5-11); Burr Cells SLIGHT = 2-5 cells HPF (0-1); CellaVision Operator ID LAB.KB; Lymphocytes 18 % (21-51); Macrocytosis SLIGHT = 6-15 cells HPF (0-5); Monocytes 14 % (0-10); Neutrophil 68 % (42-75); Nucleated RBC (Manual Ct) 2 % (0); Ovalocytes SLIGHT = 2-5 cells HPF (0-1); Platelet Adequacy Comment Platelets Decreased; Polychromasia SLIGHT = 2-3 cells HPF (0-2); Smudge Cells 5.9 %; Target Cells SLIGHT = 2-5 cells HPF (0-1); Total Cell Count 102
[2023-03-09] MEDS ORDERED: Ondansetron ODT 4 MG TAB PO PRN (20:56)
[2023-03-09] MEDS ORDERED: Calcium Carbonate 500 MG ChewTAB PO PRN (20:56)
[2023-03-09] MEDS: Atorvastatin Calcium 40 MG TAB PO SCH (21:46)
[2023-03-09] MEDS: Midodrine HCl 5 MG TAB PO SCH (21:46)
[2023-03-09 21:54] VITALS: BMI 25.6
[2023-03-09] MEDS ORDERED: Ipratropium/Albuterol 3 ML NEB NEB PRN (22:12)
[2023-03-10 03:58] LABS: #Neutrophils 2.4 thou/uL (1.40-6.50); %Basophils 0.4 % (0.0-1.0); %Eosinophils 0.6 % (0.0-10.0); %Lymphocytes 31.9 % (21.0-51.0); %Monocytes 19.4 % (0.0-10.0); %Neutrophils 47.5 % (42.0-75.0); Hematocrit 33.4 % (36.0-47.0); Hemoglobin 9.6 g/dL (12.0-16.0); Mean Corpuscular HGB CONC 28.7 g/dL (32.0-36.0); Mean Corpuscular Hemoglobin 30.8 pg (27.0-31.0); Mean Corpuscular Volume 107.1 fl (78.0-98.0); Mean Platelet Volume 10.7 fL (7.4-10.4); Platelet Count 97 10x3/uL (130-400); RBC Distribution Width 18.6 % (11.5-14.5); Red Blood Cell (RBC) Count 3.12 mill/uL (4.20-5.40)
[2023-03-10 04:24] LABS: Troponin I 0.138 ng/mL (< 0.028)
[2023-03-10 04:36] LABS: Anion Gap 17 mmol/L (10-20); BUN (Urea Nitrogen) 44 mg/dL (9.8-20.1); Calc. Creatinine Clearance 10 mL/min (70-130); Calcium 8.2 mg/dL (7.8-10.44); Carbon Dioxide 24 mmol/L (23-31); Chloride 105 mmol/L (98-107); Estimated GFR 9; Potassium 5.3 mmol/L (3.5-5.1); Sodium 141 mmol/L (136-145)
[2023-03-10 04:39] LABS: Glucose 54 mg/dL (83-110)
[2023-03-10 06:25] LABS: Thyroid Stimulating Hormone 4.7745 uIU/mL (0.35-4.94)
[2023-03-10 07:21] LABS: Hep B Core Total Ab Non-Reactive (NonReactive); Hep B Core Total Index 0.13 S/CO (0-0.79); Hep B Surf Ag Non-Reactive S/CO (NonReactive); Hep C IgG Ab Non-Reactive S/CO (NonReactive); Hep C Index 0.05 S/CO (0-0.79)
[2023-03-10 07:29] LABS: Hep B Surf AB Reactive (NonReactive)
[2023-03-10] MEDS ORDERED: Glucagon 1 MG/ML KIT IM PRN (08:48)
[2023-03-10] MEDS ORDERED: Dextrose 5% in Water 1,000 ML IV PRN (08:48)
[2023-03-10] MEDS ORDERED: Dextrose 50% Abboject 50 ML SYRINGE SLOW IVP PRN (08:48)
[2023-03-10] MEDS: Aspirin 81 mg Enteric Coated Tablet PO SCH (09:05)
[2023-03-10] MEDS: Pantoprazole 40 MG VIAL IVP SCH ×2 (09:05→20:43)
[2023-03-10] MEDS: Midodrine HCl 5 MG TAB PO SCH ×3 (09:05→20:43)
[2023-03-10] MEDS: Acetaminophen 325 MG TAB PO PRN ×2 (13:28→21:36)
[2023-03-10 15:28] LABS: Hematocrit 32.1 % (36.0-47.0); Hemoglobin 9.4 g/dL (12.0-16.0); Manual Diff?? YES; Mean Corpuscular HGB CONC 29.3 g/dL (32.0-36.0); Mean Corpuscular Hemoglobin 31.1 pg (27.0-31.0); Mean Corpuscular Volume 106.3 fl (78.0-98.0); Platelet Count 102 10x3/uL (130-400); RBC Distribution Width 18.6 % (11.5-14.5); Red Blood Cell (RBC) Count 3.02 mill/uL (4.20-5.40); White Blood Cell (WBC) Count 4.4 10x3/uL (4.8-10.8)
[2023-03-10 15:29] LABS: Delete Auto Diff?? YES
[2023-03-10 16:08] LABS: Anisocytosis SLIGHT = 6-15 cells HPF (0-5); Band 1 % (5-11); Burr Cells SLIGHT = 2-5 cells HPF (0-1); CellaVision Operator ID LAB.KB; Eosinophils 1 % (0-10); Large Platelets 2.9 % (0-5); Lymphocytes 25 % (21-51); Macrocytosis SLIGHT = 6-15 cells HPF (0-5); Monocytes 21 % (0-10); Neutrophil 53 % (42-75); Ovalocytes SLIGHT = 2-5 cells HPF (0-1); Platelet Adequacy Comment Platelets Decreased; Polychromasia SLIGHT = 2-3 cells HPF (0-2); Smudge Cells 9.8 %; Total Cell Count 102
[2023-03-10] MEDS: Atorvastatin Calcium 40 MG TAB PO SCH (20:43)
[2023-03-11] MEDS: Pantoprazole 40 MG VIAL IVP SCH (07:28)
[2023-03-11] MEDS: Midodrine HCl 5 MG TAB PO SCH ×3 (07:28→15:43)
[2023-03-11] MEDS: Aspirin 81 mg Enteric Coated Tablet PO SCH (07:28)
[2023-03-11] MEDS: Acetaminophen 325 MG TAB PO PRN ×2 (07:49→13:31)
[2023-03-11] MEDS ORDERED: PHENYLEPHRINE-NS 100 MCG/ML 10 ML SYRINGE ONE (12:37)
[2023-03-11] MEDS ORDERED: Lidocaine 1% PF 5 ML VIAL ONE (12:37)
[2023-03-11] MEDS ORDERED: PROPOFOL 200 MG/20 ML VIAL ONE (12:37)
[2023-03-11 14:08] VITALS: TEMP 97.9
[2023-03-11 14:56] VITALS: BP 87/60
[2023-03-11] MEDS ORDERED: HYDROcodone/Acetaminophen 10/325 mg Tablet PO SCH (15:30)
== END 2023-03-11 17:10 | disposition home or self-care (01) | DRG 377 ==
LOC: ERS 17:35 → IMCU/EMU 19:49 → T4-A 03-10 12:46
PROVIDERS: ADMIT Student in an Organized Health Care Education/Training Program; ATTEND Internal Medicine Critical Care Medicine
PROC: 0DB68ZX Excision of Stomach, Via Natural or Artificial Opening Endoscopic, Diagnostic (ICD-10-PCS; principal; 2023-03-11)
DX: K29.71 Gastritis, unspecified, with bleeding (principal); N18.6 End stage renal disease; T86.19 Other complication of kidney transplant; I42.9 Cardiomyopathy, unspecified; J45.909 Unspecified asthma, uncomplicated; D63.1 Anemia in chronic kidney disease; I50.9 Heart failure, unspecified; I48.91 Unspecified atrial fibrillation; E11.649 Type 2 diabetes mellitus with hypoglycemia without coma; R77.8 Other specified abnormalities of plasma proteins; I11.0 Hypertensive heart disease with heart failure; I95.9 Hypotension, unspecified; Z99.2 Dependence on renal dialysis; Z79.01 Long term (current) use of anticoagulants; Z82.49 Family history of ischemic heart disease and other diseases of the circulatory system; Z88.8 Allergy status to other drugs, medicaments and biological substances; Z91.041 Radiographic dye allergy status; Z91.013 Allergy to seafood; Z79.899 Other long term (current) drug therapy; Z79.82 Long term (current) use of aspirin
CPT/HCPCS: 36415; 36416; 71045; 80048; 80053; 82274; 82533; 82607; 83880; 84443; 84484; 85025; 85610; 85730; 86704; 86850; 86900; 86901; 88305; 88342; 90935; 93005; 96361; 96374; C9113; G0257; J2704